=== PATIENT | female | born 1970 | race Two or more races ===

== ENCOUNTER 2016-12-09 08:03 | Emergency (ER) | payer SELFPAY ==
[2016-12-09 08:43] VITALS: BP 118/92
== END 2016-12-09 08:43 | disposition home or self-care (01) ==
LOC: ED 08:03
DX: S16.1XXA Strain of muscle, fascia and tendon at neck level, initial encounter (principal); V49.40XA Driver injured in collision with unspecified motor vehicles in traffic accident, initial encounter; Y93.89 Activity, other specified; Y92.89 Other specified places as the place of occurrence of the external cause; Y99.8 Other external cause status; I10 Essential (primary) hypertension